=== PATIENT | female | born 1970 | race Caucasian/White ===

== ENCOUNTER 2017-09-10 18:00 | Emergency (ER) | payer BC, OTHER ==
[2017-09-10] MEDS ORDERED: Ondansetron ODT 4 MG TAB ONE (19:28)
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
== END 2017-09-10 20:09 | disposition home or self-care (01) ==
LOC: ERS 18:00
DX: S00.03XA Contusion of scalp, initial encounter (principal); I10 Essential (primary) hypertension; F41.9 Anxiety disorder, unspecified; F32.9 Major depressive disorder, single episode, unspecified; V43.62XA Car passenger injured in collision with other type car in traffic accident, initial encounter
CPT/HCPCS: 70450; Q0162